=== PATIENT | male | born 1960 | race Caucasian/White ===

== ENCOUNTER 2018-04-21 12:35 | Emergency (ER) | payer OTHER, SELFPAY ==
[2018-04-21] VITALS (8 sets, daily range): BP systolic 112–141; BP diastolic 63–80; PULSE 56–77; RESP 14–20; TEMP 36.5–37.1; O2SAT 90–98
--- NOTE | 2018-04-21 12:51 | ED.SOB ---
HPI - SOB/Dyspnea <Alma Kimbrough PA-C - Last Filed: 04/21/18 22:24> General Chief Complaint: Upper Respiratory Symptoms Stated Complaint: SURGERY YESTERDAY,SWELLING TODAY,TROUBLE BREATHING Time Seen by Provider: 04/21/18 12:48 Source: patient Mode of arrival: ambulatory Limitations: no limitations History of Present Illness This 58-year-old male comes in today due to obstructed feeling deep in his throat after surgery yesterday. He states that he had a tonsillectomy, lymph node biopsy, and also a tongue biopsy due to growths in these areas. He states that he had swelling yesterday, feels like it is worse today. He denies fever. He states that he is able to swallow fluids and has been able to take his pain medications. He states that he can breathe okay through his nose, feels better through his throat sitting up but does feel somewhat blocked. He denies wheezing or margaret dyspnea. He denies chest pain, new pain or swelling in the extremities or other new complaints today such as drainage from surgical wound. He states that pain medication does help. Related Data Home Medications Medication Instructions Recorded Confirmed atorvastatin [Lipitor] 20 mg PO HS #0 05/10/17 04/21/18 acarbose 25 mg PO TID 04/21/18 04/21/18 acetaminophen 1,000 mg PO Q6H PRN MDD 4000 mg 04/21/18 04/21/18 amlodipine 10 mg PO DAILY 04/21/18 04/21/18 celecoxib 200 mg PO BID 04/21/18 04/21/18 cholecalciferol (vitamin D3) 2,000 unit PO DAILY 04/21/18 04/21/18 [Vitamin D3] duloxetine 60 mg PO DAILY 04/21/18 04/21/18 finasteride 5 mg PO DAILY 04/21/18 04/21/18 glipizide 10 mg PO BID 04/21/18 04/21/18 insulin glargine 10 units SUB-Q BEDTIME 04/21/18 04/21/18 metformin 1,000 mg PO BID 04/21/18 04/21/18 methocarbamol 500 mg PO QID PRN 04/21/18 04/21/18 metoprolol tartrate 50 mg PO BID 04/21/18 04/21/18 omeprazole 20 mg PO DAILY 04/21/18 04/21/18 oxycodone 5 - 10 mg PO Q4H PRN 04/21/18 04/21/18 polyethylene glycol 3350 1 packet PO DAILY 04/21/18 04/21/18 pregabalin 100 mg PO TID 04/21/18 04/21/18 triamcinolone acetonide 1 applic TOPICAL BID 04/21/18 04/21/18 triamterene-hydrochlorothiazid 0.5 tab PO DAILY 04/21/18 04/21/18 Previous Rx's Medication Instructions Recorded lidocaine HCl [Lidocaine Viscous] 15 ml MM Q4H PRN #200 ml 04/21/18 methylprednisolone [Medrol (Hermilo)] See Label Instructions PO PER PKG 04/21/18 DIR #21 each Allergies Allergy/AdvReac Type Severity Reaction Status Date / Time lisinopril [LISINOPRIL] Allergy Severe Unverified 01/14/18 12:36 amoxicillin [AMOXICILLIN] Allergy Unknown Unverified 01/14/18 12:36 Review of Systems <Alma Kimbrough PA-C - Last Filed: 04/21/18 22:24> Review of Systems All systems reviewed & are unremarkable except as noted in HPI and below Exam <Alma Kimbrough PA-C - Last Filed: 04/21/18 22:24> Narrative Exam Narrative: GENERAL APPEARANCE: Patient sitting comfortably, in no distress. HEAD: No sinus TTP. EYES: PERRL, EOMI. EARS: Normal auditory canals, TMS intact with dull light reflexes. ORAL CAVITY: Normal oropharynx. THROAT: Tongue is mildly edematous. No visible lesions or d/c. Uvula midline, normal. NECK/THYROID: Neck supple, full range of motion, no cervical lymphadenopathy. He has tenderness and edema just inferior to the L. mandible where there is a clean, dry surgical wound. LUNGS: Clear to auscultation bilaterally, clear to percussion, no cough on exam. HEART: RRR without murmur, nl S1, S2, no S3 or S4. Initial Vital Signs Initial Vital Signs: Vital Signs Temperature 97.7 F 04/21/18 12:49 Pulse Rate 65 04/21/18 12:49 Respiratory Rate 20 04/21/18 12:49 Blood Pressure 112/63 04/21/18 12:49 Pulse Oximetry 98 07/17/18 12:49 <Anna Betancourt DO - Last Filed: 04/22/18 08:02> Initial Vital Signs Initial Vital Signs: Vital Signs Temperature 97.7 F 04/21/18 12:49 Pulse Rate 65 04/21/18 12:49 Respiratory Rate 20 04/21/18 12:49 Blood Pressure 112/63 04/21/18 12:49 Pulse Oximetry 98 04/21/18 12:49 Chest Chest: normal inspection of the chest Resp Effort & Inspection: normal respiratory effort, able to speak in complete sentences, not labored, no respiratory distress and no tripod positioning Auscultation: clear to auscultation bilaterally and no other (Stridor) Course <Alma Kimbrough PA-C - Last Filed: 04/21/18 22:24> Additional Information: [facility]. We had been unsuccessful at being able to speak with the attending ENT marketing production manager, but after contacting the [facility] we were put in touch with Dr. Jacome who is marketing production manager and stated they will be able to access CT via . He advised he will speak with the patient's attending and they can review films, then return call I was eventually able to speak with patient's attending surgeon from the [facility], Dr. Rodriguez, who reviewed the patient's films. He thinks much of this is normal postoperative swelling and was able to compare to patient's baseline. He does not think transfer or admission is needed. Patient reported feeling significantly improved after steroids though at the end of his stay did feel like his tongue was a little bit more swollen again. Dr. 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 Patient agreed to return to closest ED if acutely worsening symptoms again, and otherwise Dr. Rodriguez said his office will contact the patient directly to arrange follow up Orders Ordered: Discontinued Medications Dexamethasone (Decadron) 10 mg IV NOW ONE Stop: 04/21/18 15:06 Last Admin: 04/21/18 15:16 Dose: 10 mg Vital Signs - 8 hr 04/21/18 15:19 04/21/18 16:09 04/21/18 16:45 Temperature Pulse Rate 70 56 L 65 Respiratory Rate 15 18 17 Blood Pressure [Right Arm] 117/71 129/66 H 123/79 H Pulse Oximetry 91 91 90 L 04/21/18 18:46 04/21/18 19:36 04/21/18 20:28 Temperature 98.4 F Pulse Rate 77 75 77 Respiratory Rate 18 18 14 Blood Pressure [Right Arm] 141/80 H 140/75 H 133/69 H Pulse Oximetry 94 95 04/21/18 20:35 Temperature 98.7 F Pulse Rate Respiratory Rate Blood Pressure [Right Arm] Pulse Oximetry <Anna Betancourt DO - Last Filed: 04/22/18 08:02> Orders Ordered: Discontinued Medications Dexamethasone (Decadron) 10 mg IV NOW ONE Stop: 04/21/18 15:06 Last Admin: 04/21/18 15:16 Dose: 10 mg Vital Signs - 8 hr 04/21/18 15:19 04/21/18 16:09 04/21/18 16:45 Temperature Pulse Rate 70 56 L 65 Respiratory Rate 15 18 17 Blood Pressure [Right Arm] 117/71 129/66 H 123/79 H Pulse Oximetry 91 91 90 L 04/21/18 18:46 04/21/18 19:36 04/21/18 20:28 Temperature 98.4 F Pulse Rate 77 75 77 Respiratory Rate 18 18 14 Blood Pressure [Right Arm] 141/80 H 140/75 H 133/69 H Pulse Oximetry 94 95 04/21/18 20:35 Temperature 98.7 F Pulse Rate Respiratory Rate Blood Pressure [Right Arm] Pulse Oximetry MDM - SOB/Dyspnea <Alma Kimbrough PA-C - Last Filed: 04/21/18 22:24> Lab Data Attestation: I reviewed the patient's lab results. Result diagrams: 04/21/18 15:25 04/21/18 15:25 Lab Results 04/21/18 04/21/18 04/21/18 Range/Units 15:25 15:25 15:25 WBC 10.5 (4.5-11.0) X10^3/uL RBC 4.11 L (4.5-5.9) X10^6/uL Hgb 12.2 L (13.5-17.5) g/dL Hct 35.0 L (41-53) % MCV 85.1 (80-100) fL MCH 29.6 (26-34) PG MCHC 34.8 (30-36) % RDW 13.4 (11.6-14.8) % Plt Count 154 (150-400) X10^3/uL Neut % (Auto) 73.1 (50-75) % Lymph % (Auto) 17.6 L (25-40) % [place] % (Auto) 7.4 (3-14) % Eos % (Auto) 1.4 L (2-4) % Baso % (Auto) 0.5 (0-2) % Neut # (Auto) 7700 H (9865-0329) /uL Sodium 138 (137-145) mmol/L Potassium 3.6 (3.4-5.1) mmol/L Chloride 99 (98-107) mmol/L Carbon Dioxide 28 (22-32) mmol/L BUN 13 (9-20) mg/dL Creatinine 0.50 L (0.66-1.25) mg/dL Estimated GFR > 60.0 (>60) mL/min BUN/Creatinine Ratio 26.0 H (6-22) Glucose 174 H (70-100) mg/dL Lactate 1.2 (0.7-2.1) mmol/L Calcium 9.4 (8.4-10.2) mg/dL Imaging Data neck: Radiologist's impression: View Report History [address] [address] [address] Scan Report Signed Patient: Mikhail Nolasco MR#: [id number] : 1960 Acct:[id number] Age/Sex: 58 / M Date of Service: 04/21/18 Loc: ED Accession Number: [id number] Procedure: CT soft tissue neck wo con Ordering Provider: Alma Kimbrough P.A-C PROCEDURE: CT SOFT TISSUE NECK WO CON INDICATIONS: Feels obstructed post tonsilectomy yesterday. TECHNIQUE: Non-contrast 3.0 mm axial sections acquired from the sella to the aortic arch. Additional oblique axial 3.0 mm sections acquired through the pharynx. 3 mm thick coronal and sagittal reformats were generated. For radiation dose reduction, the following was used: automated exposure control. COMPARISON: None. FINDINGS: Image quality: Excellent. Borderline prominent lymph nodes are present within the left neck. Non-opacified vessels appear normal in caliber. Areas of air are present within the left neck inferior to the parotid gland. Air tracks along the posterior aspect of the left submandibular gland. Stranding and edema are present within the subcutaneous fat. No focal fluid collection is present. There is amorphous prominence of soft tissue density along the posterior aspect of the left tongue base and extending along the peritonsillar region. There is rightward deviation of the airway and at its narrowest point measures 5 mm AP by 14 mm transverse. There is no well-defined fluid collection. However, study is limited without IV contrast. The parotid and submandibular glands appear normal, without stones. Thyroid gland is unremarkable. Visualized brain and orbits appear normal. Lung apex demonstrates right apical consolidative opacity. IMPRESSION: 1. Amorphous soft tissue with areas of air as well as narrowing and deviation of the airway as described above. Given presence of soft tissue edema and air within the left lateral neck soft tissues and given history of surgery, findings are suspected to be post surgical. Given the extent of airway deviation, there is mass effect which may be secondary to edema. While no discrete fluid collection such as abscess is identified, lack of IV contrast limits further evaluation. Recommend ENT consult and followup imaging as indicated. 2. Consolidative opacities present within the right upper lobe suspicious for pneumonia. The above findings were discussed with Alma Kimbrough PA-C on 04/21/18 at 2:23 PM. Dictated by: Dianna Berger M.D. on 04/21/2018 at 14:15 Approved by: Dianna Berger M.D. on 04/21/2018 at 14:27 <Anna Betancourt DO - Last Filed: 04/22/18 08:02> Lab Data Lab Results 04/21/18 04/21/18 04/21/18 Range/Units 15:25 15:25 15:25 WBC 10.5 (4.5-11.0) X10^3/uL RBC 4.11 L (4.5-5.9) X10^6/uL Hgb 12.2 L (13.5-17.5) g/dL Hct 35.0 L (41-53) % MCV 85.1 (80-100) fL MCH 29.6 (26-34) PG MCHC 34.8 (30-36) % RDW 13.4 (11.6-14.8) % Plt Count 154 (150-400) X10^3/uL Neut % (Auto) 73.1 (50-75) % Lymph % (Auto) 17.6 L (25-40) % [place] % (Auto) 7.4 (3-14) % Eos % (Auto) 1.4 L (2-4) % Baso % (Auto) 0.5 (0-2) % Neut # (Auto) 7700 H (4023-8497) /uL Sodium 138 (137-145) mmol/L Potassium 3.6 (3.4-5.1) mmol/L Chloride 99 (98-107) mmol/L Carbon Dioxide 28 (22-32) mmol/L BUN 13 (9-20) mg/dL Creatinine 0.50 L (0.66-1.25) mg/dL Estimated GFR > 60.0 (>60) mL/min BUN/Creatinine Ratio 26.0 H (6-22) Glucose 174 H (70-100) mg/dL Lactate 1.2 (0.7-2.1) mmol/L Calcium 9.4 (8.4-10.2) mg/dL Discharge Plan Departure Patient Disposition: Home, Self-Care Clinical Impression: Neck swelling, Swollen tongue Discharge Date/Time: 04/21/18 20:35 Interventions: ED Discharge Assessment Last Done: 04/21/18 20:35 Activity Restrictions/Additional Instructions: I spoke with your surgeon, Dr. Rodriguez this evening. He has reviewed your CT scan and believes that it is safe for you to go home tonight. He requested that you get some lidocaine liquid to help with your sore mouth and throat, and also he would like you to start on steroids to help with the swelling since this helped you in the emergency room. I have sent these into [facility] in [place] so you can start them tonight. He said that his office will call you tomorrow to set up follow-up. You need to return to the closest emergency room if you feel like you have worsening swelling again or difficulty breathing. Please follow the other postoperative instructions he has given you Prescriptions: New lidocaine HCl [Lidocaine Viscous] 2 % solution 15 ml MM Q4H PRN (Reason: mouth pain) Qty: 200 RF: 0 methylprednisolone [Medrol (Hermilo)] 4 mg tablets,dose pack See Label Instructions PO PER PKG DIR Qty: 21 RF: 0 No Action atorvastatin [Lipitor] 20 MG tablet 20 mg PO HS Qty: 0 RF: 0 celecoxib 200 mg Capsule 200 mg PO BID RF: 0 methocarbamol 500 mg Tablet 500 mg PO QID PRN (Reason: Muscle Spasm) RF: 0 polyethylene glycol 3350 17 gram Powder In Packet 1 packet PO DAILY RF: 0 metoprolol tartrate 100 mg Tablet 50 mg PO BID RF: 0 glipizide 10 mg Tablet 10 mg PO BID RF: 0 acarbose 50 mg Tablet 25 mg PO TID RF: 0 acetaminophen 500 mg Tablet 1,000 mg PO Q6H MDD 4000 mg PRN (Reason: Pain, Moderate) RF: 0 amlodipine 10 mg Tablet 10 mg PO DAILY RF: 0 metformin 1,000 mg Tablet 1,000 mg PO BID RF: 0 triamcinolone acetonide 0.1 % Ointment 1 applic TOPICAL BID RF: 0 omeprazole 20 mg Capsule,Delayed Release(Dr/Ec) 20 mg PO DAILY RF: 0 triamterene-hydrochlorothiazid 75-50 mg Tablet 0.5 tab PO DAILY RF: 0 finasteride 5 mg Tablet 5 mg PO DAILY RF: 0 oxycodone 5 mg Tablet 5 - 10 mg PO Q4H PRN (Reason: Pain, Severe) RF: 0 duloxetine 60 mg Capsule,Delayed Release(Dr/Ec) 60 mg PO DAILY RF: 0 pregabalin 100 mg Capsule 100 mg PO TID RF: 0 cholecalciferol (vitamin D3) [Vitamin D3] 1,000 unit Tablet 2,000 unit PO DAILY RF: 0 insulin glargine 100 unit/mL (3 mL) Insulin Pen 10 units Sub-Q BEDTIME RF: 0 Referrals: [place], [place] [Other] Rosales Acosta MD [Primary Care Provider] - <Anna Betnacourt DO - Last Filed: 04/22/18 08:02> Cosign ED Attending Chrisature Attestation: I was immediately available in the department for consultation. Documentation has been reviewed. I agree with assessment and plan. A seen and evaluated patient. He does not appear in any respiratory distress there is no drooling no stridor he is able to speak in full sentences. CT does reveal on tracheal deviation. This is either a chronic or postoperative. Multiple times of trying to get in touch with the ENT attending Alma did speak with a resident. Finally she did speak with the ENT attending did review the images and it was decided patient can be discharged safely home. He was in the ED for over 8 hr and remained hemodynamically stable without any respiratory distress or compromise
--- NOTE | 2018-04-21 13:10 | PC.NURSE ---
Pt had tonsillectomy yesterday,pt now having swelling of his tongue and it feels like there is a flap when he swallows. Pt able to swallow but feels like there is something obstructing .
--- NOTE | 2018-04-21 13:13 | DI.CT.S_ITS ---
PROCEDURE: CT SOFT TISSUE NECK WO CON INDICATIONS: Feels obstructed post tonsilectomy yesterday. TECHNIQUE: Non-contrast 3.0 mm axial sections acquired from the sella to the aortic arch. Additional oblique axial 3.0 mm sections acquired through the pharynx. 3 mm thick coronal and sagittal reformats were generated. For radiation dose reduction, the following was used: automated exposure control. COMPARISON: None. FINDINGS: Image quality: Excellent. Borderline prominent lymph nodes are present within the left neck. Non-opacified vessels appear normal in caliber. Areas of air are present within the left neck inferior to the parotid gland. Air tracks along the posterior aspect of the left submandibular gland. Stranding and edema are present within the subcutaneous fat. No focal fluid collection is present. There is amorphous prominence of soft tissue density along the posterior aspect of the left tongue base and extending along the peritonsillar region. There is rightward deviation of the airway and at its narrowest point measures 5 mm AP by 14 mm transverse. There is no well-defined fluid collection. However, study is limited without IV contrast. The parotid and submandibular glands appear normal, without stones. Thyroid gland is unremarkable. Visualized brain and orbits appear normal. Lung apex demonstrates right apical consolidative opacity. IMPRESSION: 1. Amorphous soft tissue with areas of air as well as narrowing and deviation of the airway as described above. Given presence of soft tissue edema and air within the left lateral neck soft tissues and given history of surgery, findings are suspected to be post surgical. Given the extent of airway deviation, there is mass effect which may be secondary to edema. While no discrete fluid collection such as abscess is identified, lack of IV contrast limits further evaluation. Recommend ENT consult and followup imaging as indicated. 2. Consolidative opacities present within the right upper lobe suspicious for pneumonia. The above findings were discussed with Alma Kimbrough PA-C on 04/21/18 at 2:23 PM. Dictated by: Dianna Berger M.D. on 04/21/2018 at 14:15 Approved by: Dianna Berger M.D. on 04/21/2018 at 14:27
[2018-04-21] MEDS: DEXAMETHASONE 10 MG/ML VIAL IV (15:16)
[2018-04-21 15:38] LABS: Add Manual Diff / Slide Review NO; Basophils Percent Auto 0.5 % (0-2); Eosinophils Percent Auto 1.4 % (2-4); Hemoglobin 12.2 g/dL (13.5-17.5); Lymphocytes Percent Auto 17.6 % (25-40); Mean Corpuscular HGB Conc 34.8 % (30-36); Mean Corpuscular Hemoglobin 29.6 PG (26-34); Mean Corpuscular Volume 85.1 fL (80-100); Monocytes Percent Auto 7.4 % (3-14); Neutrophils Absolute Auto 7700 /uL (3000-5900); Neutrophils Percent Auto 73.1 % (50-75); Platelet Count 154 X10^3/uL (150-400); Red Blood Cell Count 4.11 X10^6/uL (4.5-5.9); Red Cell Distribution Width 13.4 % (11.6-14.8); White Blood Cell Count 10.5 X10^3/uL (4.5-11.0)
[2018-04-21 15:48] LABS: Blood Urea Nitrogen 13 mg/dL (9-20); Calcium 9.4 mg/dL (8.4-10.2); Carbon Dioxide 28 mmol/L (22-32); Chloride 99 mmol/L (98-107); Estimated Glomerular Filt Rate > 60.0 mL/min (>60); Glucose 174 mg/dL (70-100); HEMOLYSIS 20 (0-50); Lactate (Lactic Acid) 1.2 mmol/L (0.7-2.1); Potassium 3.6 mmol/L (3.4-5.1); Sodium 138 mmol/L (137-145)
--- NOTE | 2018-04-21 19:46 | PC.NURSE ---
Pt complaining that the swelling in his throat is returning. Alma Kimbrough aware. No new orders at this time.
== END 2018-04-21 20:35 | disposition home or self-care (01) ==
PROVIDERS: Emergency Provider Internal Medicine; PCP Family Medicine
DX: R22.1 Localized swelling, mass and lump, neck (principal); R22.0 Localized swelling, mass and lump, head
CPT/HCPCS: 36591; 70490; 80048; 82962; 83605; 85025; 96374; 99283; 99284; J1100

== ENCOUNTER 2018-05-15 15:19 | Emergency (ER) | payer OTHER, SELFPAY ==
[2018-05-15 15:24] VITALS: BP 188/88; PULSE 67; RESP 18; TEMP 37.2; O2SAT 96; BMI 30.7
--- NOTE | 2018-05-15 17:17 | ED_ITS ---
HPI - General Adult <Alma Kimbrough PA-C - Last Filed: 05/15/18 23:11> General Chief complaint: Hypertension Stated complaint: HAD TEETH TAKEN OUT YEST BLOOD PRESSURE HIGH/HEADA Time Seen by Provider: 05/15/18 16:50 Source: patient Mode of arrival: ambulatory Limitations: no limitations History of Present Illness HPI narrative: This 58-year-old gentleman comes to the ED today due to nausea and vomiting x3 today. He notes that his blood pressure has been increased at home today in the 180s range. Also increased in the 160s range yesterday. He thinks this is because he has been unable to keep down any of his medicine today due to the vomiting, including his metoprolol and amlodipine this morning. He states that he has not had any food or fluids. He has not had his usual pain medication. He had oral surgery yesterday to remove most of his teeth. 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 He is not sure whether the primary site is the tongue or tonsil. He denies any chest pain or dyspnea. He states he does have some modest headache but nothing debilitating, no vision change, no confusion or weakness. He states he feels slightly lightheaded. He denies any new abdominal pain, states he has some chronic right-sided upper quadrant pain that is unchanged from previous. States this has been worked up in the past and nonspecific. He denies any other new complaints such as extremity pain or swelling or other new symptoms today. He states that he has significant mouth pain since his previous surgeries as well as having the teeth removed yesterday and feels like the headache comes from that. Related Data Home Medications Medication Instructions Recorded Confirmed atorvastatin [Lipitor] 20 mg PO HS #0 05/10/17 05/15/18 acarbose 25 mg PO AC 04/21/18 05/15/18 acetaminophen 1,000 mg PO Q6H PRN MDD 4000 mg 04/21/18 05/15/18 amlodipine 10 mg PO DAILY 04/21/18 05/15/18 celecoxib 200 mg PO BID 04/21/18 05/15/18 cholecalciferol (vitamin D3) 2,000 unit PO DAILY 04/21/18 05/15/18 [Vitamin D3] duloxetine 60 mg PO DAILY 04/21/18 05/15/18 finasteride 5 mg PO DAILY 04/21/18 05/15/18 glipizide 10 mg PO BID 04/21/18 05/15/18 insulin glargine 10 units SUB-Q BEDTIME 04/21/18 05/15/18 metformin 1,000 mg PO BID 04/21/18 05/15/18 omeprazole 20 mg PO DAILY 04/21/18 05/15/18 oxycodone 5 - 10 mg PO Q4H PRN 04/21/18 05/15/18 polyethylene glycol 3350 1 packet PO DAILY 04/21/18 05/15/18 pregabalin 100 mg PO TID 04/21/18 05/15/18 triamcinolone acetonide 1 applic TOPICAL BID 04/21/18 05/15/18 triamterene-hydrochlorothiazid 0.5 tab PO DAILY 04/21/18 05/15/18 clindamycin HCl 300 mg PO TID 05/15/18 05/15/18 gabapentin 300 mg PO TID 05/15/18 05/15/18 metoprolol tartrate 75 mg PO BID 05/15/18 05/15/18 Allergies Allergy/AdvReac Type Severity Reaction Status Date / Time lisinopril [LISINOPRIL] Allergy Severe Swelling Verified 05/15/18 15:29 of Lip/Tongue/Throat amoxicillin [AMOXICILLIN] Allergy Unknown Swelling Verified 05/15/18 15:29 of Lip/Tongue/Throat Review of Systems <Alma Kimbrough PA-C - Last Filed: 05/15/18 23:11> Review of Systems All systems reviewed & are unremarkable except as noted in HPI and below Exam <Alma Kimbrough PA-C - Last Filed: 05/15/18 23:11> Narrative Exam Narrative: GENERAL APPEARANCE: Patient sitting comfortably, in no distress. HEAD: No sinus TTP. EYES: PERRL, EOMI. EARS: Normal auditory canals, TMS intact with normal light reflexes. ORAL CAVITY: Normal oropharynx. THROAT: Erythematous without exudate NECK/THYROID: Neck supple, full range of motion LUNGS: Clear to auscultation bilaterally, no cough on exam. HEART: RRR without murmur, nl S1, S2, no S3 or S4. ABDOMEN: Soft, minimal generalized upper quadrant tenderness without guarding or rebound, +bowel sounds x4 quadrants, no palpable masses Extremities: No cyanosis, no edema, no calf tenderness NEUROLOGIC: Patient is alert and oriented with normal speech and coordination Initial Vital Signs Initial Vital Signs: Vital Signs Temperature 98.9 F 05/15/18 15:24 Pulse Rate 67 05/15/18 15:24 Respiratory Rate 18 05/15/18 15:24 Blood Pressure 188/88 H 05/15/18 15:24 Pulse Oximetry 96 05/15/18 15:24 <Anna Betancourt DO - Last Filed: 05/16/18 20:40> Initial Vital Signs Initial Vital Signs: Vital Signs Temperature 98.9 F 05/15/18 15:24 Pulse Rate 67 05/15/18 15:24 Respiratory Rate 18 05/15/18 15:24 Blood Pressure 188/88 H 05/15/18 15:24 Pulse Oximetry 96 05/15/18 15:24 Course <Alma Kimbrough PA-C - Last Filed: 05/15/18 23:11> Additional Information: Patient reported feeling improved prior to discharge. He did not have any recurrent vomiting. He was tolerating apple sauce and fluids orally. He stated that he still had some headache, however he thinks this is stemming from his dental work and his usual neck and throat pain. We discussed head CT but he does not feel that this is necessary and neurologically he appears normal. He did not keep down any of his medications earlier today including his blood pressure medication the which may be the source of his nausea. 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 He felt comfortable to discharge home and agreed to return if any acutely worsening symptoms. He will monitor his home blood pressures over the weekend and contact his PCP if still elevated. He did take his metoprolol and amlodipine at their usual doses while in the ED without any vomiting. Orders Ordered: Discontinued Medications Hydromorphone HCl (Dilaudid) 1 mg IV NOW ONE Stop: 05/15/18 17:48 Last Admin: 05/15/18 17:50 Dose: 1 mg Sodium Chloride (Normal Saline 0.9%) 1,000 mls @ 1,000 mls/hr IV BOLUS ONE Stop: 05/15/18 18:08 Last Infusion: 08/10/18 19:05 Dose: 0 mls/hr Admin: 05/15/18 17:50 Dose: 1,000 mls/hr Ondansetron HCl (Zofran) 4 mg IV NOW ONE Stop: 05/15/18 17:10 Last Admin: 05/15/18 17:48 Dose: 4 mg Vital Signs - 8 hr 05/15/18 15:24 05/15/18 17:33 05/15/18 19:29 Temperature 98.9 F Pulse Rate 67 69 89 Respiratory Rate 18 16 12 Blood Pressure 188/88 H Blood Pressure [Left Arm] 187/92 H 190/85 H Pulse Oximetry 96 93 05/15/18 20:39 Temperature Pulse Rate 78 Respiratory Rate Blood Pressure 191/83 H Blood Pressure [Left Arm] Pulse Oximetry 95 <Anna Betancourt DO - Last Filed: 05/16/18 20:40> Orders Ordered: Discontinued Medications Hydromorphone HCl (Dilaudid) 1 mg IV NOW ONE Stop: 05/15/18 17:48 Last Admin: 05/15/18 17:50 Dose: 1 mg Sodium Chloride (Normal Saline 0.9%) 1,000 mls @ 1,000 mls/hr IV BOLUS ONE Stop: 05/15/18 18:08 Last Infusion: 05/15/18 19:05 Dose: 0 mls/hr Admin: 05/15/18 17:50 Dose: 1,000 mls/hr Ondansetron HCl (Zofran) 4 mg IV NOW ONE Stop: 05/15/18 17:10 Last Admin: 05/15/18 17:48 Dose: 4 mg Vital Signs - 8 hr 05/15/18 15:24 05/15/18 17:33 05/15/18 19:29 Temperature 98.9 F Pulse Rate 67 69 89 Respiratory Rate 18 16 12 Blood Pressure 188/88 H Blood Pressure [Left Arm] 187/92 H 190/85 H Pulse Oximetry 96 93 05/15/18 20:39 Temperature Pulse Rate 78 Respiratory Rate Blood Pressure 191/83 H Blood Pressure [Left Arm] Pulse Oximetry 95 Medical Decision Making <Alma Kimbrough PA-C - Last Filed: 05/15/18 23:11> Lab Data Result diagrams: 05/15/18 17:40 05/15/18 17:40 Lab Results 05/15/18 05/15/18 05/15/18 Range/Units 17:20 17:40 17:40 WBC 10.6 (4.5-11.0) X10^3/uL RBC 3.90 L (4.5-5.9) X10^6/uL Hgb 11.6 L (13.5-17.5) g/dL Hct 33.0 L (41-53) % MCV 84.6 (80-100) fL MCH 29.7 (26-34) PG MCHC 35.1 (30-36) % RDW 14.6 (11.6-14.8) % Plt Count 203 (150-400) X10^3/uL Neut % (Auto) 70.5 (50-75) % Lymph % (Auto) 19.8 L (25-40) % [place] % (Auto) 8.8 (3-14) % Eos % (Auto) 0.6 L (2-4) % Baso % (Auto) 0.3 (0-2) % Neut # (Auto) 7500 H (5772-1586) /uL Sodium 139 (137-145) mmol/L Potassium 3.8 (3.4-5.1) mmol/L Chloride 99 (98-107) mmol/L Carbon Dioxide 29 (22-32) mmol/L BUN 16 (9-20) mg/dL Creatinine 0.50 L (0.66-1.25) mg/dL Estimated GFR > 60.0 (>60) mL/min BUN/Creatinine Ratio 32.0 H (6-22) Glucose 155 H (70-100) mg/dL Lactate (0.7-2.1) mmol/L Calcium 9.3 (8.4-10.2) mg/dL Total Bilirubin 0.7 (0.2-1.3) mg/dL AST 22 (17-59) IU/L ALT 30 (21-72) IU/L Alkaline Phosphatase 68 (38-126) U/L Total Creatine Kinase 38 L (55-170) U/L Troponin I < 0.012 (0.01-0.034) ng/mL Total Protein 7.2 (6.3-8.2) g/dL Albumin 4.4 (3.5-5.0) g/dL Globulin 2.8 (1.7-4.1) g/dL Albumin/Globulin Ratio 1.6 (1.0-2.8) Lipase 168 (23-300) U/L Urine RBC None seen (0-5/HPF) Urine WBC None seen (0-5/HPF) Urine Bacteria None seen (None) Ur Culture Indicated? Cult not indicated Micro UA Comment Microscopic normal 05/15/18 Range/Units 17:40 WBC (4.5-11.0) X10^3/uL RBC (4.5-5.9) X10^6/uL Hgb (13.5-17.5) g/dL Hct (41-53) % MCV (80-100) fL MCH (26-34) PG MCHC (30-36) % RDW (11.6-14.8) % Plt Count (150-400) X10^3/uL Neut % (Auto) (50-75) % Lymph % (Auto) (25-40) % [place] % (Auto) (3-14) % Eos % (Auto) (2-4) % Baso % (Auto) (0-2) % Neut # (Auto) (6673-5491) /uL Sodium (137-145) mmol/L Potassium (3.4-5.1) mmol/L Chloride (98-107) mmol/L Carbon Dioxide (22-32) mmol/L BUN (9-20) mg/dL Creatinine (0.66-1.25) mg/dL Estimated GFR (>60) mL/min BUN/Creatinine Ratio (6-22) Glucose (70-100) mg/dL Lactate 1.0 (0.7-2.1) mmol/L Calcium (8.4-10.2) mg/dL Total Bilirubin (0.2-1.3) mg/dL AST (17-59) IU/L ALT (21-72) IU/L Alkaline Phosphatase (38-126) U/L Total Creatine Kinase (55-170) U/L Troponin I (0.01-0.034) ng/mL Total Protein (6.3-8.2) g/dL Albumin (3.5-5.0) g/dL Globulin (1.7-4.1) g/dL Albumin/Globulin Ratio (1.0-2.8) Lipase (23-300) U/L Urine RBC (0-5/HPF) Urine WBC (0-5/HPF) Urine Bacteria (None) Ur Culture Indicated? Micro UA Comment ECG Data Attestation: I personally reviewed and interpreted this ECG as follows: (Normal sinus rhythm with rate 66, normal axis ) <Anna Betancourt DO - Last Filed: 05/16/18 20:40> Lab Data Lab Results 05/15/18 05/15/18 05/15/18 Range/Units 17:20 17:40 17:40 WBC 10.6 (4.5-11.0) X10^3/uL RBC 3.90 L (4.5-5.9) X10^6/uL Hgb 11.6 L (13.5-17.5) g/dL Hct 33.0 L (41-53) % MCV 84.6 (80-100) fL MCH 29.7 (26-34) PG MCHC 35.1 (30-36) % RDW 14.6 (11.6-14.8) % Plt Count 203 (150-400) X10^3/uL Neut % (Auto) 70.5 (50-75) % Lymph % (Auto) 19.8 L (25-40) % [place] % (Auto) 8.8 (3-14) % Eos % (Auto) 0.6 L (2-4) % Baso % (Auto) 0.3 (0-2) % Neut # (Auto) 7500 H (6375-3464) /uL Sodium 139 (137-145) mmol/L Potassium 3.8 (3.4-5.1) mmol/L Chloride 99 (98-107) mmol/L Carbon Dioxide 29 (22-32) mmol/L BUN 16 (9-20) mg/dL Creatinine 0.50 L (0.66-1.25) mg/dL Estimated GFR > 60.0 (>60) mL/min BUN/Creatinine Ratio 32.0 H (6-22) Glucose 155 H (70-100) mg/dL Lactate (0.7-2.1) mmol/L Calcium 9.3 (8.4-10.2) mg/dL Total Bilirubin 0.7 (0.2-1.3) mg/dL AST 22 (17-59) IU/L ALT 30 (21-72) IU/L Alkaline Phosphatase 68 (38-126) U/L Total Creatine Kinase 38 L (55-170) U/L Troponin I < 0.012 (0.01-0.034) ng/mL Total Protein 7.2 (6.3-8.2) g/dL Albumin 4.4 (3.5-5.0) g/dL Globulin 2.8 (1.7-4.1) g/dL Albumin/Globulin Ratio 1.6 (1.0-2.8) Lipase 168 (23-300) U/L Urine RBC None seen (0-5/HPF) Urine WBC None seen (0-5/HPF) Urine Bacteria None seen (None) Ur Culture Indicated? Cult not indicated Micro UA Comment Microscopic normal 05/15/18 Range/Units 17:40 WBC (4.5-11.0) X10^3/uL RBC (4.5-5.9) X10^6/uL Hgb (13.5-17.5) g/dL Hct (41-53) % MCV (80-100) fL MCH (26-34) PG MCHC (30-36) % RDW (11.6-14.8) % Plt Count (150-400) X10^3/uL Neut % (Auto) (50-75) % Lymph % (Auto) (25-40) % [place] % (Auto) (3-14) % Eos % (Auto) (2-4) % Baso % (Auto) (0-2) % Neut # (Auto) (3796-2460) /uL Sodium (137-145) mmol/L Potassium (3.4-5.1) mmol/L Chloride (98-107) mmol/L Carbon Dioxide (22-32) mmol/L BUN (9-20) mg/dL Creatinine (0.66-1.25) mg/dL Estimated GFR (>60) mL/min BUN/Creatinine Ratio (6-22) Glucose (70-100) mg/dL Lactate 1.0 (0.7-2.1) mmol/L Calcium (8.4-10.2) mg/dL Total Bilirubin (0.2-1.3) mg/dL AST (17-59) IU/L ALT (21-72) IU/L Alkaline Phosphatase (38-126) U/L Total Creatine Kinase (55-170) U/L Troponin I (0.01-0.034) ng/mL Total Protein (6.3-8.2) g/dL Albumin (3.5-5.0) g/dL Globulin (1.7-4.1) g/dL Albumin/Globulin Ratio (1.0-2.8) Lipase (23-300) U/L Urine RBC (0-5/HPF) Urine WBC (0-5/HPF) Urine Bacteria (None) Ur Culture Indicated? Micro UA Comment Discharge Plan Departure Patient Disposition: Home, Self-Care Clinical Impression: Nausea & vomiting, Hypertension, Headache Discharge Date/Time: 05/15/18 20:48 Interventions: ED Discharge Assessment Last Done: 05/15/18 20:39 Prescriptions: No Action atorvastatin [Lipitor] 20 MG tablet 20 mg PO HS Qty: 0 RF: 0 gabapentin 300 mg Capsule 300 mg PO TID RF: 0 metoprolol tartrate 25 mg Tablet 75 mg PO BID RF: 0 clindamycin HCl 300 mg Capsule 300 mg PO TID RF: 0 celecoxib 200 mg Capsule 200 mg PO BID RF: 0 polyethylene glycol 3350 17 gram Powder In Packet 1 packet PO DAILY RF: 0 glipizide 10 mg Tablet 10 mg PO BID RF: 0 acarbose 50 mg Tablet 25 mg PO AC RF: 0 acetaminophen 500 mg Tablet 1,000 mg PO Q6H MDD 4000 mg PRN (Reason: Pain, Moderate) RF: 0 amlodipine 10 mg Tablet 10 mg PO DAILY RF: 0 metformin 1,000 mg Tablet 1,000 mg PO BID RF: 0 triamcinolone acetonide 0.1 % Ointment 1 applic TOPICAL BID RF: 0 omeprazole 20 mg Capsule,Delayed Release(Dr/Ec) 20 mg PO DAILY RF: 0 triamterene-hydrochlorothiazid 75-50 mg Tablet 0.5 tab PO DAILY RF: 0 finasteride 5 mg Tablet 5 mg PO DAILY RF: 0 oxycodone 5 mg Tablet 5 - 10 mg PO Q4H PRN (Reason: Pain, Severe) RF: 0 duloxetine 60 mg Capsule,Delayed Release(Dr/Ec) 60 mg PO DAILY RF: 0 pregabalin 100 mg Capsule 100 mg PO TID RF: 0 cholecalciferol (vitamin D3) [Vitamin D3] 1,000 unit Tablet 2,000 unit PO DAILY RF: 0 insulin glargine 100 unit/mL (3 mL) Insulin Pen 10 units Sub-Q BEDTIME RF: 0 Referrals: Rosales Acosta MD [Primary Care Provider] - <Anna Betancourt DO - Last Filed: 05/16/18 20:40> Cosign ED Attending [place]te Attestation: I was immediately available in the department for consultation. Documentation has been reviewed. I agree with assessment and plan.
[2018-05-15 17:33] VITALS: BP 187/92; PULSE 69; RESP 16; O2SAT 93
[2018-05-15 17:39] LABS: Bacteria Urine None Seen; RBC Urine None Seen (0-5/HPF); WBC Urine None Seen (0-5/HPF)
[2018-05-15] MEDS: ONDANSETRON 4 MG/2 ML INJ IV (17:48)
[2018-05-15] MEDS: HYDROMORPHONE 1 MG INJ IV (17:50)
[2018-05-15] MEDS: SODIUM CHLORIDE 0.9% 1,000 ML 1000 ML IV (17:50)
[2018-05-15 17:53] LABS: Culture Indicated Urine Cult Not Indicated; Urine Comments Microscopic Normal
[2018-05-15 17:58] LABS: Add Manual Diff / Slide Review NO; Basophils Percent Auto 0.3 % (0-2); Eosinophils Percent Auto 0.6 % (2-4); Hemoglobin 11.6 g/dL (13.5-17.5); Lymphocytes Percent Auto 19.8 % (25-40); Mean Corpuscular HGB Conc 35.1 % (30-36); Mean Corpuscular Hemoglobin 29.7 PG (26-34); Mean Corpuscular Volume 84.6 fL (80-100); Monocytes Percent Auto 8.8 % (3-14); Neutrophils Absolute Auto 7500 /uL (3000-5900); Neutrophils Percent Auto 70.5 % (50-75); Platelet Count 203 X10^3/uL (150-400); Red Cell Distribution Width 14.6 % (11.6-14.8); White Blood Cell Count 10.6 X10^3/uL (4.5-11.0)
[2018-05-15 18:13] LABS: Alanine Aminotransferase 30 IU/L (21-72); Albumin 4.4 g/dL (3.5-5.0); Albumin Globulin Ratio 1.6 (1.0-2.8); Alkaline Phosphatase 68 U/L (38-126); Aspartate Aminotransferase 22 IU/L (17-59); Bilirubin Total 0.7 mg/dL (0.2-1.3); Blood Urea Nitrogen 16 mg/dL (9-20); Calcium 9.3 mg/dL (8.4-10.2); Carbon Dioxide 29 mmol/L (22-32); Chloride 99 mmol/L (98-107); Creatine Kinase 38 U/L (55-170); Estimated Glomerular Filt Rate > 60.0 mL/min (>60); Globulin 2.8 g/dL (1.7-4.1); Glucose 155 mg/dL (70-100); HEMOLYSIS < 15 (0-50); Lipase 168 U/L (23-300); Potassium 3.8 mmol/L (3.4-5.1); Sodium 139 mmol/L (137-145); Total Protein 7.2 g/dL (6.3-8.2)
[2018-05-15 18:25] LABS: Troponin I < 0.012 ng/mL (0.01-0.034)
--- NOTE | 2018-05-15 18:46 | PC.NURSE ---
Alma Kimbrough ok with pt taking his home Rx for BP. Pt took 75mg Metoprolol PO
[2018-05-15 19:29] VITALS: BP 190/85; PULSE 89; RESP 12
[2018-05-15 20:39] VITALS: BP 191/83; PULSE 78; O2SAT 95
== END 2018-05-15 20:48 | disposition home or self-care (01) ==
PROVIDERS: Emergency Provider Internal Medicine; PCP Family Medicine
DX: I10 Essential (primary) hypertension (principal); R11.2 Nausea with vomiting, unspecified; R51 Headache
CPT/HCPCS: 36591; 80053; 81003; 81015; 82550; 82553; 83605; 83690; 84484; 85025; 93005; 93010; 93041; 96361; 96374; 96375; 99283; 99284; J1170; J2405

== ENCOUNTER 2019-09-01 17:13 | Emergency (ER) | payer OTHER, SELFPAY ==
[2019-09-01 17:27] VITALS: BP 115/70; PULSE 81; RESP 18; TEMP 36.9; O2SAT 97; BMI 29.2
--- NOTE | 2019-09-01 17:37 | DI.RAD.S_ITS ---
PROCEDURE: XR CHEST 1V INDICATIONS: Sycope TECHNIQUE: One view of the chest was acquired. COMPARISON: None. FINDINGS: Surgical changes and devices: None. Lungs and pleura: Patchy left basilar opacities favored to represent atelectasis. Developing airspace disease not excluded. No pleural effusions or pneumothorax. Mediastinum: Mediastinal contours appear normal. Heart size is normal. Bones and chest wall: No suspicious bony lesions. Overlying soft tissues appear unremarkable. IMPRESSION: Mild patchy left basilar opacities possibly representing atelectasis and/or developing airspace disease or aspiration. Recommend follow up chest radiograph 4-6 weeks after treatment to document resolution of findings and/or return to baseline examination. Dictated by: Vaughn Concepcion M.D. on 09/01/2019 at 20:23 Approved by: Vaughn Concepcion M.D. on 09/01/2019 at 20:25
--- NOTE | 2019-09-01 17:52 | ED.SYNCOPE ---
HPI - Syncope <Madison KuhnZEUS - Last Filed: 09/01/19 21:01> General Chief Complaint: Syncope Stated Complaint: fainting,constipation,htn Time Seen by Provider: 09/01/19 17:35 Source: patient Mode of arrival: Family Vehicle Limitations: no limitations History of Present Illness HPI narrative: 59-year-old male with a history of esophageal cancer that is now in remission after chemo no radiation, presents to the emergency department today complaining of multiple syncope episodes. He states this happens once every 6 months but recently and happened 4 days ago and then again this evening. He states he was standing when this happened and he felt lightheaded and passed out, hitting his head on the floor. He states he was only out for a few seconds and then awoke. He denies any chest pain, shortness of breath, abdominal pain, nausea, vomiting, diarrhea, loss of bowel or bladder control, seizure-like activity, bending tongue, fevers, or other concerns. He states he has had low blood pressure issues in the past and just finished wearing a awake overnight monitor for this. He states he usually drinks Ensure but has not had that for the past few days as he has run out. Related Data Home Medications Medication Instructions Recorded Confirmed atorvastatin [Lipitor] 20 mg PO HS #0 05/10/17 05/15/18 acarbose 25 mg PO AC 04/21/18 05/15/18 acetaminophen 1,000 mg PO Q6H PRN MDD 4000 mg 04/21/18 05/15/18 amlodipine 10 mg PO DAILY 04/21/18 05/15/18 celecoxib 200 mg PO BID 04/21/18 05/15/18 cholecalciferol (vitamin D3) 2,000 unit PO DAILY 04/21/18 05/15/18 [Vitamin D3] duloxetine 60 mg PO DAILY 04/21/18 05/15/18 finasteride 5 mg PO DAILY 04/21/18 05/15/18 glipizide 10 mg PO BID 04/21/18 05/15/18 insulin glargine 10 units SUB-Q BEDTIME 04/21/18 05/15/18 metformin 1,000 mg PO BID 04/21/18 05/15/18 omeprazole 20 mg PO DAILY 04/21/18 05/15/18 oxycodone 5 - 10 mg PO Q4H PRN 04/21/18 05/15/18 polyethylene glycol 3350 1 packet PO DAILY 04/21/18 05/15/18 pregabalin 100 mg PO TID 04/21/18 05/15/18 triamcinolone acetonide 1 applic TOPICAL BID 04/21/18 05/15/18 triamterene-hydrochlorothiazid 0.5 tab PO DAILY 04/21/18 05/15/18 clindamycin HCl 300 mg PO TID 05/15/18 05/15/18 gabapentin 300 mg PO TID 05/15/18 05/15/18 metoprolol tartrate 75 mg PO BID 05/15/18 05/15/18 Allergies Allergy/AdvReac Type Severity Reaction Status Date / Time lisinopril [LISINOPRIL] Allergy Severe Swelling Verified 09/01/19 17:32 of Lip/Tongue/Throat amoxicillin [AMOXICILLIN] Allergy Unknown Swelling Verified 09/01/19 17:32 of Lip/Tongue/Throat Review of Systems <ZEUS Aleman - Last Filed: 09/01/19 21:01> Review of Systems Narrative: REVIEW OF SYSTEMS: GENERAL: Denies fever or chills. HENT: No hearing loss or sore throat. EYES: No loss of vision, double vision, eye pain, or irritation. CARDIOVASCULAR: Complains of syncope, see HPI. RESPIRATORY: No shortness of breath or cough. GASTROINTESTINAL: No nausea, vomiting, diarrhea, or constipation. GENITOURINARY: No flank pain or dysuria. MUSCULOSKELETAL: No pain, weakness, or deformities. INTEGUMENTARY: No rash, lesions, or pruritus. NEURO: No numbness, tingling, memory loss, or confusion. PSYCH: No behavior or mood changes. Patient History <ZEUS Aleman - Last Filed: 09/01/19 21:01> Medical History Angioedema (Chronic) Chronic right upper quadrant pain (Chronic) HTN (hypertension) (Chronic) Hyperlipidemia (Chronic) Insulin dependent diabetes mellitus (Chronic) Oral cancer (Chronic) Surgical History History of tonsillectomy (Acute) Social History Smoking Status: Former smoker alcohol intake frequency: 0-2 drinks per day Substance Use Type: does not use Exam <ZEUS Aleman - Last Filed: 09/01/19 21:01> Initial Vital Signs Initial Vital Signs: Vital Signs Temperature 98.4 F 09/01/19 17:27 Pulse Rate 81 09/01/19 17:27 Respiratory Rate 18 09/01/19 17:27 Blood Pressure 115/70 09/01/19 17:27 Pulse Oximetry 97 09/01/19 17:27 PHYSICAL EXAMINATION: GENERAL: Well groomed, alert, and cooperative. Answers questions promptly and appropriately. Vital signs noted. HENT: Normocephalic, atraumatic. Ear canals patent. Oral mucosa is pink and moist. EYES: Conjunctiva pink, sclera white, no periorbital swelling. CHEST: Normal to inspection and without deformities. CARDIOVASCULAR: S1 and S2 sounds normal. Regular rate and rhythm, no murmurs, clicks, or bruits. No pedal edema. RESPIRATORY: Normal respiratory rate, trachea midline, airway patent. No stridor, nasal flaring or accessory muscle use. Lungs are clear in all [place] without wheeze, rhonchi, or crackles. GASTROINTESTINAL: Bowel sounds normoactive. Abdomen is soft and non-tender. No organomegaly. MUSCULOSKELETAL: Normal gait and coordination. Equal tone and mass bilaterally. EXTREMITIES: CMS intact. Moves all extremities. SKIN: Warm, dry, soft, appropriate color for ethnicity. No lesions, rashes, or wounds. NEURO: Alert and Oriented X 3. Good coordination. No ataxia, or sensory deficits, or cognitive issues. PSYCH: Appropriate affect and mood. <Yanet Kc DO - Last Filed: 09/02/19 02:31> Initial Vital Signs Initial Vital Signs: Vital Signs Temperature 98.4 F 09/01/19 17:27 Pulse Rate 81 09/01/19 17:27 Respiratory Rate 18 09/01/19 17:27 Blood Pressure 115/70 09/01/19 17:27 Pulse Oximetry 97 09/01/19 17:27 Course <ZEUS Aleman - Last Filed: 09/01/19 21:01> Course Course Narrative: Patient was given IV fluids in the emergency department. After fluids, he states he was feeling better and was able to walk around the room without symptoms. Patient remained hemodynamically stable throughout the emergency department stay. Orders Ordered: ED Orders 09/01/19 17:37 XR chest 1V Stat EKG-12 Lead Stat 09/01/19 17:49 Complete Blood Count AUTO DIFF Stat Comprehensive Metabolic Panel Stat Troponin & CK Cardiac Panel Stat 09/01/19 17:51 CT head/brain wo con Stat Discontinued Medications Sodium Chloride (Normal Saline 0.9%) 1,000 mls @ 1,000 mls/hr IV BOLUS ONE Stop: 09/01/19 18:50 Last Infusion: 09/01/19 21:10 Dose: 0 mls/hr Documented by: Admin: 09/01/19 18:00 Dose: 1,000 mls/hr Documented by: EITAN Consultations Consultation #1: Patient staffed with Dr. Elizondo and Dr. Kc Vital Signs Vital signs: Vital Signs - 8 hr 09/01/19 20:31 09/01/19 21:11 Pulse Rate 77 74 Respiratory Rate 15 16 Blood Pressure 171/85 H Blood Pressure [Right Arm] 176/93 H Pulse Oximetry 97 97 <Yanet Kc DO - Last Filed: 09/02/19 02:31> Orders Ordered: ED Orders 09/01/19 17:37 XR chest 1V Stat EKG-12 Lead Stat 09/01/19 17:49 Complete Blood Count AUTO DIFF Stat Comprehensive Metabolic Panel Stat Troponin & CK Cardiac Panel Stat 09/01/19 17:51 CT head/brain wo con Stat Discontinued Medications Sodium Chloride (Normal Saline 0.9%) 1,000 mls @ 1,000 mls/hr IV BOLUS ONE Stop: 09/01/19 18:50 Last Infusion: 09/01/19 21:10 Dose: 0 mls/hr Documented by: Admin: 09/01/19 18:00 Dose: 1,000 mls/hr Documented by: EITAN Vital Signs Vital signs: Vital Signs - 8 hr 09/01/19 20:31 09/01/19 21:11 Pulse Rate 77 74 Respiratory Rate 15 16 Blood Pressure 171/85 H Blood Pressure [Right Arm] 176/93 H Pulse Oximetry 97 97 MDM - Syncope <ZEUS Aleman - Last Filed: 09/01/19 21:01> Medical Records Attestation: I reviewed the patient's medical records. Lab Data Attestation: I reviewed the patient's lab results. Result diagrams: 09/01/19 17:49 09/01/19 17:49 Labs: Lab Results 09/01/19 09/01/19 Range/Units 17:49 17:49 WBC 6.3 (4.5-11.0) X10^3/uL RBC 4.73 (4.5-5.9) X10^6/uL Hgb 13.1 L (13.5-17.5) g/dL Hct 38.0 L (41-53) % MCV 80.4 (80-100) fL MCH 27.6 (26-34) PG MCHC 34.3 (30-36) % RDW 15.2 H (11.6-14.8) % Plt Count 166 (150-400) X10^3/uL Neut % (Auto) 81.2 H (50-75) % Lymph % (Auto) 9.6 L (25-40) % [place] % (Auto) 7.1 (3-14) % Eos % (Auto) 1.8 L (2-4) % Baso % (Auto) 0.3 (0-2) % Neut # (Auto) 5100 (5400-6302) /uL Lymph # (Auto) 600 L (1308-8484) /uL [place] # (Auto) 400 (0-900) /uL Eos # (Auto) 100 (0-450) /uL Baso # (Auto) 0 (0-100) /uL Sodium 135 L (137-145) mmol/L Potassium 3.8 (3.4-5.1) mmol/L Chloride 92 L (98-107) mmol/L Carbon Dioxide 31 (22-32) mmol/L BUN 19 (9-20) mg/dL Creatinine 0.70 (0.66-1.25) mg/dL Estimated GFR > 60.0 (>60) mL/min BUN/Creatinine Ratio 27.1 H (6-22) Glucose 142 H (70-100) mg/dL Calcium 10.4 H (8.4-10.2) mg/dL Total Bilirubin 1.0 (0.2-1.3) mg/dL AST 28 (17-59) IU/L ALT 21 (<50) IU/L Alkaline Phosphatase 58 (38-126) U/L Total Creatine Kinase 36 L (55-170) U/L CK-MB (CK-2) TNP CK-MB (CK-2) Rel Index TNP Troponin I < 0.012 (0.01-0.034) ng/mL Total Protein 8.4 H (6.3-8.2) g/dL Albumin 5.0 (3.5-5.0) g/dL Globulin 3.4 (1.7-4.1) g/dL Albumin/Globulin Ratio 1.5 (1.0-2.8) Urine Dip Bedside Urine Glucose Negative Bedside Urine Bilirubin - Negative Bedside Urine Ketone - Negative Urine Specific [place] 1.010 Bedside Urine Occult Blood - Negative Bedside Urine pH 6.5 Bedside Urine Protein - Negative Bedside Urine Urobilinogen - Negative Bedside Urine Nitrite - Negative Imaging Data Chest x-ray: Radiologist's impression: [address] [place] [id number] XRay Report Signed Patient: Mikhail Nolasco LMR#: [id number] : 1960Acct:[id number] Age/Sex: 59 / MDate of Service: 09/01/19 Loc: ED Accession Number: [id number] Procedure: XR chest 1V Ordering Provider: Madison Kuhn PROCEDURE: XR CHEST 1V INDICATIONS: Sycope TECHNIQUE: One view of the chest was acquired. COMPARISON: None. FINDINGS: Surgical changes and devices: None. Lungs and pleura: Patchy left basilar opacities favored to represent atelectasis. Developing airspace disease not excluded. No pleural effusions or pneumothorax. Mediastinum: Mediastinal contours appear normal. Heart size is normal. Bones and chest wall: No suspicious bony lesions. Overlying soft tissues appear unremarkable. IMPRESSION: Mild patchy left basilar opacities possibly representing atelectasis and/or developing airspace disease or aspiration. Recommend follow up chest radiograph 4-6 weeks after treatment to document resolution of findings and/or return to baseline examination. Dictated by: Vaughn Concepcion M.D. on 09/01/2019 at 20:23 Approved by: Vaughn Concepcion M.D. on 09/01/2019 at 20:[address]: Radiologist's impression: [address] [address] [address] Scan Report Signed Patient: Mikhail Nolasco LMR#: [id number] : 1960Acct:[id number] Age/Sex: 59 / MDate of Service: 09/01/19 Loc: ED Accession Number: [id number] Procedure: CT head/brain wo con Ordering Provider: Madison Kuhn PROCEDURE: CT HEAD/BRAIN WO CON INDICATIONS: LOC x 3, headache. TECHNIQUE: Noncontrast 4.5 mm thick angled axial sections acquired from the foramen magnum to the vertex, with coronal and sagittal reformats. For radiation dose reduction, the following was used: automated exposure control, adjustment of mA and/or kV according to patient size. COMPARISON: None. FINDINGS: Image quality: Excellent. CSF spaces: Basal cisterns are patent. No extra-axial fluid collections. The ventricles are symmetric in size and shape. Brain: No intracranial bleeds or masses. There is cerebral volume loss for age, with resultant ventricular and sulcal prominence. There are periventricular and deep white matter chronic small vessel ischemic changes. There is intracranial internal carotid artery atherosclerosis. Skull and face: Calvarium and visualized facial bones appear intact, without suspicious lesions. Sinuses: Visualized sinuses and mastoids are clear. IMPRESSION: No acute intracranial abnormality. Dictated by: Vaughn Concepcion M.D. on 09/01/2019 at 18:44 Approved by: Vaughn Concepcion M.D. on 09/01/2019 at 18:45 ECG Data Interpretation: Normal sinus rhythm, rate 78, OH interval 169, QTC 386. No ST elevation or ST depression. No T-wave abnormality. EKG was also read by Dr. elizondo per protocol. [facility] Narrative Medical decision making narrative: This is a 59-year-old male in the emergency department for a long history of syncope increasing frequency. He reports he has trouble consuming calories and fluid and has not had his Ensure for the past few days. Patient had mild hyponatremia but otherwise unremarkable. Head CT, EKG, and chest x-ray with negative for any acute changes. I suspect his syncope is most likely due to malnutrition and dehydration. Differential also includes ACS (less likely due to negative troponin and unremarkable EKG), cranial etiology (less likely due to normal neurological exam and negative head CT), seizures (less likely due to lack of seizure-like activity, loss of bowel or bladder control, and no postictal period as prescribed per patient and family). Patient was encouraged to follow up with his primary care provider in the next week for re-evaluation and continued evaluation of his Zio patch. Strict return precautions given. <Yanet Kc, DO - Last Filed: 09/02/19 02:31> Lab Data Labs: Lab Results 09/01/19 09/01/19 Range/Units 17:49 17:49 WBC 6.3 (4.5-11.0) X10^3/uL RBC 4.73 (4.5-5.9) X10^6/uL Hgb 13.1 L (13.5-17.5) g/dL Hct 38.0 L (41-53) % MCV 80.4 (80-100) fL MCH 27.6 (26-34) PG MCHC 34.3 (30-36) % RDW 15.2 H (11.6-14.8) % Plt Count 166 (150-400) X10^3/uL Neut % (Auto) 81.2 H (50-75) % Lymph % (Auto) 9.6 L (25-40) % [place] % (Auto) 7.1 (3-14) % Eos % (Auto) 1.8 L (2-4) % Baso % (Auto) 0.3 (0-2) % Neut # (Auto) 5100 (7625-3650) /uL Lymph # (Auto) 600 L (5698-0871) /uL [place] # (Auto) 400 (0-900) /uL Eos # (Auto) 100 (0-450) /uL Baso # (Auto) 0 (0-100) /uL Sodium 135 L (137-145) mmol/L Potassium 3.8 (3.4-5.1) mmol/L Chloride 92 L (98-107) mmol/L Carbon Dioxide 31 (22-32) mmol/L BUN 19 (9-20) mg/dL Creatinine 0.70 (0.66-1.25) mg/dL Estimated GFR > 60.0 (>60) mL/min BUN/Creatinine Ratio 27.1 H (6-22) Glucose 142 H (70-100) mg/dL Calcium 10.4 H (8.4-10.2) mg/dL Total Bilirubin 1.0 (0.2-1.3) mg/dL AST 28 (17-59) IU/L ALT 21 (<50) IU/L Alkaline Phosphatase 58 (38-126) U/L Total Creatine Kinase 36 L (55-170) U/L CK-MB (CK-2) TNP CK-MB (CK-2) Rel Index TNP Troponin I < 0.012 (0.01-0.034) ng/mL Total Protein 8.4 H (6.3-8.2) g/dL Albumin 5.0 (3.5-5.0) g/dL Globulin 3.4 (1.7-4.1) g/dL Albumin/Globulin Ratio 1.5 (1.0-2.8) Urine Dip Bedside Urine Glucose Negative Bedside Urine Bilirubin - Negative Bedside Urine Ketone - Negative Urine Specific [place] 1.010 Bedside Urine Occult Blood - Negative Bedside Urine pH 6.5 Bedside Urine Protein - Negative Bedside Urine Urobilinogen - Negative Bedside Urine Nitrite - Negative Discharge Plan Departure Patient Disposition: Home Clinical Impression: Syncope Qualifiers: Syncope type: unspecified Qualified Code(s): R55 - Syncope and collapse Discharge Date/Time: 09/01/19 21:11 Instructions: DI for Syncope in Adults (Fainting) Activity Restrictions/Additional Instructions: Thank you for entrusting me with your care today. As discussed, chest x-ray, head CT, and EKG are negative for any concerning findings. Your labs showed minor early low-sodium. I recommend drinking Pedialyte and Ensure as previously recommended for the next few days. Please follow up with your primary care provider in the next week for re-evaluation. Return emergency department for new or worsening symptoms such as uncontrollable vomiting, blood in your vomit, chest pain, shortness of breath, high fevers, or other concerns. Prescriptions: No Action atorvastatin [Lipitor] 20 MG tablet 20 mg PO HS Qty: 0 RF: 0 gabapentin 300 mg Capsule 300 mg PO TID RF: 0 metoprolol tartrate 25 mg Tablet 75 mg PO BID RF: 0 clindamycin HCl 300 mg Capsule 300 mg PO TID RF: 0 celecoxib 200 mg Capsule 200 mg PO BID RF: 0 polyethylene glycol 3350 17 gram Powder In Packet 1 packet PO DAILY RF: 0 glipizide 10 mg Tablet 10 mg PO BID RF: 0 acarbose 50 mg Tablet 25 mg PO AC RF: 0 acetaminophen 500 mg Tablet 1,000 mg PO Q6H MDD 4000 mg PRN (Reason: Pain, Moderate) RF: 0 amlodipine 10 mg Tablet 10 mg PO DAILY RF: 0 metformin 1,000 mg Tablet 1,000 mg PO BID RF: 0 triamcinolone acetonide 0.1 % Ointment 1 applic TOPICAL BID RF: 0 omeprazole 20 mg Capsule,Delayed Release(Dr/Ec) 20 mg PO DAILY RF: 0 triamterene-hydrochlorothiazid 75-50 mg Tablet 0.5 tab PO DAILY RF: 0 finasteride 5 mg Tablet 5 mg PO DAILY RF: 0 oxycodone 5 mg Tablet 5 - 10 mg PO Q4H PRN (Reason: Pain, Severe) RF: 0 duloxetine 60 mg Capsule,Delayed Release(Dr/Ec) 60 mg PO DAILY RF: 0 pregabalin 100 mg Capsule 100 mg PO TID RF: 0 cholecalciferol (vitamin D3) [Vitamin D3] 1,000 unit Tablet 2,000 unit PO DAILY RF: 0 insulin glargine 100 unit/mL (3 mL) Insulin Pen 10 units Sub-Q BEDTIME RF: 0 Referrals: Rosales Acosta MD [Primary Care Provider] -
--- NOTE | 2019-09-01 17:53 | PC.NURSE ---
patient reports recently completing Zio patch awaiting results. Patient states he has had labile blood pressures. Reports multiple syncopal episodes reports being down for 2-5 min after episodes. Unknown what BP or blood sugars are doing during this episodes. reports hitting his head and being on aspirin. Patient has negative FAST exam at this time. Denies chest pain at this time. Patient currently in remission from espohogeal CA had chemo and radiation. patient has had stuggles with his nutrition since treatment for cancer. States he does not eat or drink well due to difficutly swallowing. [facility] gives [facility] ensures but I can't drink too many of them because of my blood sugars they aren't good for me
[2019-09-01 17:55] LABS: Add Manual Diff / Slide Review NO; Basophils Absolute Auto 0 /uL (0-100); Basophils Percent Auto 0.3 % (0-2); Eosinophils Absolute Auto 100 /uL (0-450); Eosinophils Percent Auto 1.8 % (2-4); Hemoglobin 13.1 g/dL (13.5-17.5); Lymphocytes Absolute Auto 600 /uL (1100-4500); Lymphocytes Percent Auto 9.6 % (25-40); Mean Corpuscular HGB Conc 34.3 % (30-36); Mean Corpuscular Hemoglobin 27.6 PG (26-34); Mean Corpuscular Volume 80.4 fL (80-100); Monocytes Absolute Auto 400 /uL (0-900); Monocytes Percent Auto 7.1 % (3-14); Neutrophils Absolute Auto 5100 /uL (1500-7000); Neutrophils Percent Auto 81.2 % (50-75); Platelet Count 166 X10^3/uL (150-400); Red Blood Cell Count 4.73 X10^6/uL (4.5-5.9); Red Cell Distribution Width 15.2 % (11.6-14.8); White Blood Cell Count 6.3 X10^3/uL (4.5-11.0)
[2019-09-01] MEDS: SODIUM CHLORIDE 0.9% 1,000 ML 1000 ML IV (18:00)
[2019-09-01 18:11] LABS: Alanine Aminotransferase 21 IU/L (<50); Albumin Globulin Ratio 1.5 (1.0-2.8); Alkaline Phosphatase 58 U/L (38-126); Aspartate Aminotransferase 28 IU/L (17-59); BUN Creatinine Ratio 27.1 (6-22); Blood Urea Nitrogen 19 mg/dL (9-20); Calcium 10.4 mg/dL (8.4-10.2); Carbon Dioxide 31 mmol/L (22-32); Chloride 92 mmol/L (98-107); Creatine Kinase 36 U/L (55-170); Estimated Glomerular Filt Rate > 60.0 mL/min (>60); Globulin 3.4 g/dL (1.7-4.1); Glucose 142 mg/dL (70-100); HEMOLYSIS < 15 (0-50); Potassium 3.8 mmol/L (3.4-5.1); Sodium 135 mmol/L (137-145); Total Protein 8.4 g/dL (6.3-8.2)
[2019-09-01 18:22] LABS: Troponin I < 0.012 ng/mL (0.01-0.034)
[2019-09-01 20:31] VITALS: BP 176/93; PULSE 77; RESP 15; O2SAT 97
[2019-09-01 21:11] VITALS: BP 171/85; PULSE 74; RESP 16; O2SAT 97
== END 2019-09-01 21:11 | disposition home or self-care (01) ==
PROVIDERS: Emergency Provider Nurse Practitioner; PCP Family Medicine
DX: R55 Syncope and collapse (principal); E87.1 Hypo-osmolality and hyponatremia; I10 Essential (primary) hypertension; E11.9 Type 2 diabetes mellitus without complications; Z79.4 Long term (current) use of insulin; E78.5 Hyperlipidemia, unspecified
CPT/HCPCS: 36415; 70450; 71045; 80053; 81003; 82550; 84484; 85025; 93005; 96360; 96361; 99283; 99285

== ENCOUNTER → 2022-09-13 07:39 | Outpatient (CLI) | payer OTHER, SELFPAY | PROVIDERS: PCP Family Medicine; Referring Provider Internal Medicine; Visit Provider Internal Medicine | DX: E11.9 Type 2 diabetes mellitus without complications (principal); R11.0 Nausea; Z53.8 Procedure and treatment not carried out for other reasons ==